=== PATIENT | male | born 1960 | race Caucasian/White ===

== ENCOUNTER → 2023-11-28 18:22 | Outpatient (REF) | payer OTHER, SELFPAY | LOC: MRI 3T 18:22 | PROVIDERS: ATTENDING PHYSICIAN Specialist; FAMILY PHYSICIAN Nurse Practitioner | DX: C61 Malignant neoplasm of prostate (principal) | CPT/HCPCS: 72197; A9575 ==

== ENCOUNTER → 2023-12-31 06:31 | Day surgery (SDC) | payer OTHER, SELFPAY | LOC: GI 06:31 | PROVIDERS: ATTENDING PHYSICIAN Specialist | DX: Z12.11 Encounter for screening for malignant neoplasm of colon (principal); K57.30 Diverticulosis of large intestine without perforation or abscess without bleeding; K63.3 Ulcer of intestine | CPT/HCPCS: 45380; 88305; 88312; 88341; 88342 ==

== ENCOUNTER 2024-11-18 01:51 | Inpatient (IN) | payer OTHER, SELFPAY ==
[2024-11-17 20:44] VITALS: BP 146/73
[2024-11-17] MEDS: TYLENOL 650 MG PO (20:52)
[2024-11-17 21:14] LABS: % Basophils 0.3 % (0-2); % Lymphocytes 4.3 % (20.5-51.1); % Monocytes 6.6 % (1.7-9.3); % Neutrophils 87.8 % (42.2-75.2); Absolute Immature Granulocytes 0.1 10^3/uL (0-0.05); Absolute Lymphocytes 0.5 10^3/uL (1.2-3.4); Absolute Monocytes 0.8 10^3/uL (0.1-0.6); Absolute Neutrophils 10.1 10^3/uL (1.4-6.5); Hemoglobin 11.4 g/dL (13.0-18.0); Mean Corp Hgb Conc. 35.6 g/dL (33.0-37.0); Mean Corpuscular Hgb 32.9 pg (27.0-31.0); Mean Corpuscular Volume 92.5 fL (80.0-94.0); Mean Platelet Volume 8.4 fL (7.4-10.4); Nucleated Red Blood Cells % 0 % (-); Platelet Count 259 10^3/uL (130-400); Red Blood Cell Count 3.46 10^6/uL (4.70-6.10); Red Cell Dist. Width 12.1 % (11.5-14.5); White Blood Cell Count 11.5 10^3/uL (4.8-10.8)
[2024-11-17 21:27] LABS: COVID-19 Antigen Negative (Negative)
[2024-11-17 21:28] LABS: ALT (SGPT) 24 U/L (0-50); AST (SGOT) 28 U/L (17-59); Albumin 3.8 g/dl (3.5-5.0); Alkaline Phosphatase 59 U/L (38-126); Blood Urea Nitrogen 14 mg/dl (9-20); Calcium 8.6 mg/dl (8.4-10.2); Carbon Dioxide 23 mmol/L (22-30); Chloride 92 mmol/L (98-107); Glucose 132 mg/dl (70-99); Potassium 4.5 mmol/L (3.5-5.1); Sodium 125 mmol/L (135-145); Total Bilirubin 0.7 mg/dl (0.2-1.3); Total Protein 6.4 g/dl (6.3-8.2); eGFR > 60.00
[2024-11-17 22:15] VITALS: BP 123/75
[2024-11-17 23:01] VITALS: BMI 27.0
--- NOTE | 2024-11-17 23:05 | ED.GENMED ---
History of Present Illness
General
Chief Complaint: Fever
Source: patient and spouse
Exam Limitations: none
Time Seen by Provider: 11/17/24 22:48
Nursing documentation reviewed up to this point in time: agreed with
History of Present Illness
History of Present Illness:
Very pleasant 64-year-old male with his spouse presents with fever body aches chills cough for about a week, suffers from RA is on a biologic med has prostate cancer said decreased p.o. intake he has been confused at times
Past History
Past History
ED Past Medical History: Hypothyroidism and Other (RA); Negative Arrthythmia
ED Past Surgical History: Orthopedic
Social History
Tobacco: Non-smoker
Alcohol: Occasional
Drug: None
Personal:
Living: with family
Employment: Employed (Construction)
Review of Systems
Review of Systems
All Other Systems: Not applicable
Constitutional: Reports fever, fatigue and chills
Respiratory: Reports cough
Cardiac: Reports no symptoms
ABD/GI: Denies abdominal pain
Neurological: Reports dizzy and weakness
Endocrine: Reports no symptoms
Phy Exam
Physical Exam
Physical Exam:
Physical Exam
General: Ill-appearing male
Neck: dry lips
Heart: irregular
Lungs: crackles left base
Abdomen:non tender
Neuro: alert and oriented. no focal neurological deficits
Skin: no rash
Psychiatric: well kept. interactive and cooperative
Extremities: no edema.
Course
Orders/Labs/Results
Orders:
Orders
11/17/24 20:48
CR Chest - 2 Views Urgent
Comment:
Reason For Exam: cough
11/17/24 20:49
Acetaminophen [Tylenol] 650 mg PO NOW STA
11/17/24 20:55
COVID-19 Antigen Urgent
Source: Nasal Swab
Complete Blood Count/With Diff Urgent
Comprehensive Metabolic Panel Urgent
Influenza A+B Rapid Molecular Urgent
KAYLA Source: Nasal Swab
Specimen Description:
11/17/24 21:40
ECG [Electrocardiogram (*1)] Urgent
Reason for Study: Other
Other Reason for Exam: low sodium
EKG- Treatment ONCE
11/17/24 22:49
CefTRIAXone [Rocephin] 1,000 mg IV NOW STA
11/17/24 22:50
0.9% Sodium Chloride 1000 ml [Nss] 2,000 ml IV BOLUS
11/17/24 23:00
Blood Culture Q30M
KAYLA Source: Blood/Venous
Specimen Description:
11/17/24 23:02
Cefepime HCl [Maxipime] 2,000 mg IV NOW STA
11/17/24 23:04
0.9% Sodium Chloride 1000 ml [Nss] 1,000 ml IV BOLUS
11/17/24 23:30
Blood Culture Q30M
KAYLA Source: Blood/Venous
Specimen Description:
Abnormal Lab Results
11/17/24
20:55
WBC 11.5 H 10^3/uL
(4.8-10.8)
RBC 3.46 L 10^6/uL
(4.70-6.10)
Hgb 11.4 L g/dL
(13.0-18.0)
Hct 32.0 L %
(39.0-52.0)
MCH 32.9 H pg
(27.0-31.0)
Abs Immat Gran (auto) 0.1 H 10^3/uL
(0-0.05)
Absolute Neuts (auto) 10.1 H 10^3/uL
(1.4-6.5)
Absolute Lymphs (auto) 0.5 L 10^3/uL
(1.2-3.4)
Absolute Monos (auto) 0.8 H 10^3/uL
(0.1-0.6)
Immature Gran % 1.0 H %
(0-0.5)
Neutrophils % 87.8 H %
(42.2-75.2)
Lymphocytes % 4.3 L %
(20.5-51.1)
Sodium 125 L mmol/L
(135-145)
Chloride 92 L mmol/L
(98-107)
Glucose 132 H mg/dl
(70-99)
11/17/24 20:55
11/17/24 20:55
Vital Signs
Initial and Last Documented VS:
Initial Vital Signs
Temp Pulse Resp BP Pulse Ox
103.2 F H 81 20 146/73 94
11/17/24 20:44 11/17/24 20:44 11/17/24 20:44 11/17/24 20:44 11/17/24 20:44
Last Documented Vital Signs
Temp Pulse Resp BP Pulse Ox
99.0 F 87 14 123/75 96
11/17/24 22:50 11/17/24 22:45 11/17/24 22:45 11/17/24 22:15 11/17/24 22:45
MDM/Problems Addressed
Differential Diagnosis Includes:
Community-acquired pneumonia bacteremia immunosuppressed pneumonia
MDM/Problems Addressed:
Fever low sodium immunosuppressed
Chronic conditions affecting care: Immunosuppressed
Acute Exacerbation and/or Progression of Chronic Illness: Immunosuppressed
*Radiology
Radiology exam reviewed: radiology read reviewed
*Pulse Oximetry
Patient hypoxic: no
*EKG
Interpreted by ED Provider?: Yes
Interpretation: abnormal
Comparison EKG: no comparison EKG present
Heart Rate: 77
Rate: normal
Rhythm: a-fib
Ischemia: non-specific ST changes
*Reference Assistant Interpretation
Rate: normal
Interpretation: normal
Heart Rate: 78
Rhythm: a-fib
*Critical Care Note
Total Time (30-74mins, 75-104mins- exclusive of procedures): 20
Data Reviewed
Review of Other/Old Records Reveals: Labs, Records and Radiology Studies
Source: patient
Patient Management
Social determinants of health affecting care: Living situation and Strong social support
Discussion with other providers: Hospitalist
Escalation/DeEscalation of care consider admission/obs:
Immunosuppressed fever large pneumonia new A-fib
ED Attending Note
-
Portions of this chart may have been created with voice recognition software.� Occasional wrong word or��sound alike� substitutions may have occurred due to the inherent limitations of voice recognition software.
Discharge Plan
Departure
Patient Disposition: Admit
Date of Disposition: 11/17/24
Time of Disposition: 23:10
Admit to: Telemetry
Presentation/result/management discussed w/ accepting MD/DO: Hospitalist
Condition: Fair
Discharge Problem:
Immunosuppressed pneumonia, Atrial fibrillation with normal ventricular rate
Prescriptions:
No Action
levothyroxine 25 MCG tablet
25 mcg PO DAILY
escitalopram oxalate 10 MG tablet
10 mg PO DAILY
hydrocodone-acetaminophen [Durant] 1 EACH tablet
1 ea PO Q4HPRN PRN (Reason: severe pain) Qty: 10 0RF
cephalexin 500 MG capsule
500 mg PO BID Qty: 20 0RF
Referrals:
UNKNOWN - PT DOES,NOT KNOW [Unknown Provider] -
Interventions
Interventions:
*Risk Screen - Suicide Last Done: 11/17/24 23:01
*General Assessment Last Done: 11/17/24 23:01
*Neglect/Abuse Screening Last Done: 11/17/24 23:01
*ED COVID-19 Vaccine History Last Done: 11/17/24 23:01
Discharge Date and Time
Print Language: GABONESE
[2024-11-17 23:20] VITALS: BP 124/74
[2024-11-17] MEDS: MAXIPIME 2000 MG IV (23:24)
[2024-11-17] MEDS: NSS 1000 IV (23:39)
[2024-11-18] VITALS (12 sets, daily range): BP systolic 109–156; BP diastolic 66–89; BMI 26.3
--- NOTE | 2024-11-18 01:31 | HPS.HSE ---
Family Physician
-
Family Physician: YANNA Rain
Chief Complaint
-
Fever / Confusion
History of Present Illness
Patient is a 64y M with PMH significant for RA, hypertension and hypothyroidism who presents to ED complaining of fever and confusion. Patient states that he has been having subjective fevers, occasional chills for about one week. He has felt
'fuzzy headed' at times and has been increasingly confused over the past week. He denies any other significant symptoms including sore throat, cough, headache, dyspnea, etc.
No GI or symptoms.
Medical History
Past Medical History
Past Medical History: Reports Other
Additional Past Medical History:
Rheumatoid Arthritis
Prostate Cancer
Hypertension
Hypothyroidism
Past Surgical History: Reports Other
Additional Past Surgical History:
Right Hand Surgery
Bilateral Knee Arthroscopies
Prostate Biopsy
Social History
Tobacco: Former Smoker (Quit smoking > 10 years ago.)
Alcohol: Occasional
Drug: None
Family History
Family History: Not pertinent
Allergies / Home Medications
Allergies reflects when Allergies were last updated in [facility].
Home Medications with original date entered in [facility]
Allergy/Medication List:
Allergies
Allergy/AdvReac Type Severity Reaction Status Date / Time
No Known Allergies Allergy Verified 11/17/24 20:44
Home Medications
golimumab 12.5 mg/mL intravenous solution (Simponi ARIA) 200 mg IV Q8W 11/18/24
levothyroxine 50 mcg tablet 50 mcg PO DAILY 11/18/24
lisinopril 40 mg tablet 40 mg PO DAILY 11/18/24
Review of Systems
-
History Source: Patient
A 12 point ROS was completed and negative except as noted: Yes
Constitutional: Reports Fever, Fatigue and Chills
EENT: Denies Sore Throat
Respiratory: Denies Cough or Trouble Breathing
Cardiac: Denies Chest Pain or Palpitations
Abdomen/GI: Denies Abdominal Pain, Nausea, Vomiting or Diarrhea
: Denies Dysuria, Frequency or Flank Pain
Musculoskeletal: Denies Joint Pain or Edema
Neurological: Denies Dizzy or Headache
Psych: Reports Other (Confusion.); Denies Depression or Anxiety
Physical Exam
Vital Signs
Vital Signs
Temp Pulse Resp BP Pulse Ox
99.0 F 89 20 133/75 96
11/17/24 22:50 11/18/24 01:00 11/18/24 01:00 11/18/24 01:00 11/18/24 01:00
Physical Exam
General: Other (64y M in no acute distress.)
HEENT: Moist mucous membranes and PERRLA
Respiratory: Other (Decreased BS at the L base. Otherwise clear.)
Cardiac: S1/S2 and Irregular Rhythm; No Murmur
GI: Soft, Non Tender, Non Distended and Normal Bowel Sounds
Musculoskeletal: No Clubbing, No Cyanosis and No Edema
Neuro: AO x 3
Laboratory Results
-
11/17/24 20:55
11/17/24 20:55
Laboratory Results
Total Bilirubin 0.7 mg/dl (0.2-1.3) 11/17/24 20:55
AST 28 U/L (17-59) 11/17/24 20:55
ALT 24 U/L (0-50) 11/17/24 20:55
Alkaline Phosphatase 59 U/L (38-126) 11/17/24 20:55
Impression/Plan
-
A/P: Patient is a 64y M with PMH significant for RA, HTN and hypothyroidism who presents to ED complaining of fevers and confusion x 1 week.
LLL Pneumonia
Sepsis secondary to the above
Acute TME secondary to the above
- Admit for further evaluation and treatment.
- COVID / flu negative in the ED.
- Continue abx for CAP.
- Supportive care with antipyretics, IVFs, etc.
- Follow for clinical improvement.
Hyponatremia
- Likely secondary to sepsis +/- ADH due to pneumonia / pulm process.
- Check urine studies, TFTs, etc.
- Follow for improvement with treatment of pneumonia and IVFs overnight.
Arrhythmia
- Patient with marked arrhythmia on tele / EKG.
- Appears to be A-Fib / Flutter with variable block.
- Has prior history of 'palpitations' and 'PACs' but current tracings appear more significant.
- Monitor on tele overnight. Check TFTs as noted above.
- Cardiology evaluation for additional recommendations.
Benign Hypertension
- Stable. Continue lisinopril.
Rheumatoid Arthritis
- Stable. No current complaints of joint pain, etc.
- Last dose of Simponi was about 5 weeks ago.
Prostate Cancer
- s/p initial treatment regimen.
- Follow up with Urology / Oncology as planned.
DVT Prophylaxis: Lovenox
Code Status: Full
[2024-11-18] MEDS: NSS 1000 IV ×3 (02:07→21:58)
[2024-11-18 03:04] LABS: Osmolality Urine 265 mOsm/kg (300-900)
[2024-11-18 03:12] LABS: Urine Sodium 10 mmol/L (30-90)
[2024-11-18 05:53] LABS: Hematocrit 29.5 % (39.0-52.0); Hemoglobin 10.8 g/dL (13.0-18.0); Mean Corp Hgb Conc. 36.6 g/dL (33.0-37.0); Mean Corpuscular Hgb 33.4 pg (27.0-31.0); Mean Corpuscular Volume 91.3 fL (80.0-94.0); Platelet Count 219 10^3/uL (130-400); Red Blood Cell Count 3.23 10^6/uL (4.70-6.10); Red Cell Dist. Width 12.1 % (11.5-14.5); White Blood Cell Count 9.2 10^3/uL (4.8-10.8)
[2024-11-18] MEDS: SYNTHROID 50 MCG PO (05:57)
[2024-11-18] MEDS: TYLENOL 650 MG PO ×2 (05:58→16:57)
[2024-11-18 06:18] LABS: Blood Urea Nitrogen 14 mg/dl (9-20); Calcium 8.1 mg/dl (8.4-10.2); Carbon Dioxide 22 mmol/L (22-30); Chloride 101 mmol/L (98-107); Estimated Creatinine Clearance 119 ml/min; Glucose 112 mg/dl (70-99); Sodium 130 mmol/L (135-145); eGFR > 60.00
[2024-11-18 06:48] LABS: TSH Reflex To Free T4 0.91 uIU/ml (0.47-4.68)
[2024-11-18] MEDS: VIBRAMYCIN 100 MG PO ×2 (07:47→19:54)
[2024-11-18] MEDS: ZESTRIL 40 MG PO (07:48)
[2024-11-18] MEDS: STERILE WATER FOR INJECTION 10 ML IV (07:49)
[2024-11-18] MEDS: ROCEPHIN 1000 MG IV (07:49)
--- NOTE | 2024-11-18 08:01 | CON.CAR ---
Addendum entered and electronically signed by Ross Geller MD 11/18/24 11:10:
I saw and examined the patient.
The AUTOMATIC MACHINE ATTENDANT's note was reviewed and I agree with the note.
Comment:
Elvis Ghotra is a 64-year-old man with history of prostate cancer on Lupron, hypertension on lisinopril, and rheumatoid arthritis who presents with fever and chills found to have left lower lobe pneumonia. Cardiology is consulted for atrial flutter
with variable response on admission. He spontaneously converted and is now in sinus rhythm. He was asymptomatic during his episode of atrial flutter. Physical exam with RRR, no murmurs, no lower extremity edema, crackles at the left lung base.
Labs notable for WBC 11.5, creatinine 0.7. Initial ECG shows atrial flutter with variable conduction, HR 111 bpm. For his atrial flutter, he is now back in sinus rhythm. [id number] 1 for hypertension. We will not start anticoagulation at this
time given low [id number] score and atrial flutter likely precipitated by acute illness. We will check an echocardiogram to rule out structural heart disease. Assuming his echocardiogram is normal, he can follow-up with us in the office in 4-6
weeks at which time we will do an ambulatory monitor to check for any ongoing atrial arrhythmias. His lisinopril is currently held for sepsis. When BP meds are resumed, would recommend switching lisinopril to carvedilol for rate control.
Original Note:
Consultation
Consultation Request
Date/Time Consultation Requested: 11/18/2024 01:50
Date/Time Consultation Performed: 11/18/2024 08:00
Requesting Provider: Dr. Reilly
Performing Provider: YANNA Myers for Dr. Geller
Reason for Consultation: Arrhythmia
Medical History
-
Chief Complaint: Fever
History of Present Illness:
Elvis Ghotra is a 64 year old male with hypothyroidism, HTN, RA (on golimumab)and prostate cancer (on Lupron), presented with a chief complaint of fever. He had associated chills, cough, and body aches for one week. He was found to have LLL PNA. He
was also found to be in atrial flutter. He did not have any palpitations. His is back in sinus rhythm.
Past Medical History
Past Medical History: Cancer (Prostate) and Hypothyroidism
Past Surgical History: Orthopedic
Social History
Tobacco: Non-Smoker
Alcohol: Occasional (6 pack per week)
Drug: None
Personal:
Living: With Family
Employment: Retired
Family History
Family History: Other (CVA in both parents in their 80s.)
Allergies / Home Medications
Allergy/AdvReac Type Severity Reaction Status Date / Time
No Known Allergies Allergy Verified 11/17/24 20:44
�Medication �Instructions �Recorded �Confirmed �Type
golimumab 12.5 mg/mL intravenous 200 mg IV Q8W 11/18/24 11/18/24 History
solution (Simponi ARIA)
levothyroxine 50 mcg tablet 50 mcg PO DAILY 11/18/24 11/18/24 History
lisinopril 40 mg tablet 40 mg PO DAILY 11/18/24 11/18/24 History
Review of Systems
-
History Source: Patient
All other systems: Negative unless noted
Constitutional: Fever and Fatigue
EENT: No Symptoms
Respiratory: Cough
Cardiac: No Symptoms
Abdomen/GI: No Symptoms
: No Symptoms
Musculoskeletal: Muscle Pain
Skin: No Symptoms
Neurological: No Symptoms
Endocrine: No Symptoms
Hematologic/Lymphatic: No Symptoms
Physical Exam
Vital Signs
Temp Pulse Resp BP Pulse Ox
99.9 F 68 12 129/66 94
11/18/24 02:33 11/18/24 07:48 11/18/24 07:00 11/18/24 07:48 11/18/24 07:00
Lab Results
11/18/24 05:48
11/18/24 05:48
Physical Exam
General: Well Developed, Well Nourished, No Apparent Distress and Comfortable
HEENT: Normocephalic, Anicteric and Moist Mucous Membranes
Respiratory: Rhonchi (post LLL) and Non Labored Respirations
Cardiac: S1/S2 and Regular Rhythm; Negative Peripheral Edema
Breast: Deferred by me
GI: Soft, Non Tender, Non Distended and Normal Bowel Sounds
Rectal: Deferred by Provider
Genito-urinary: No Costovertebral Tender
Musculoskeletal: No Clubbing, No Cyanosis and No Edema
Skin: Warm and Dry
Neuro: AO x 3
Hematologic/Lymphatic: No Lymphadenopathy
Psych: Calm
Impression / Plan
-
I/P: 64M with hypothyroidism, HTN, RA (on golimumab), and prostate cancer (on Lupron) presented with fever. He has PNA. He was found to be in atrial flutter.
Atrial flutter, type unknown
- Back in sinus rhythm
- Oral Anticoagulation: None prior to arrival
- [id number]: score 1 (HTN)
- Echocardiogram
Hypertension
- Hold Lisinopril with the start of metoprolol
PNA, LLL
- Neg for Covid-19 & influenza
- Per primary, still febrile
Hyponatremia, per primary
Fasting hyperglycemia, Hgba1c pending
Hypothyroidism, TSH stable on current dose of levothyroxine
RA, on golimumab
Prostate cancer, on Lupron
Data Reviewed
-
EKG: Report Reviewed by me (Atrial flutter, LAFB, rate 111)
Radiology: Report Reviewed by me (CXR: Large 11.7 cm dense airspace consolidation in the superior segment of the left lower lobe most consistent with SEVERE LEFT LOWER LOBE PNEUMONIA in the setting of fever and cough. )
Labs: Labs Reviewed by me
Old Records: Reviewed
--- NOTE | 2024-11-18 09:55 | W.PN.HOSP.TC ---
Today's Communication/Plan
-
See plan
Assessment / Plan
Assessment / Plan
Impression
Patient is a 64y M with PMH significant for RA, HTN and hypothyroidism who presents to ED complaining of fevers and confusion x 1 week.
Left lower lobe pneumonia community-acquired
Chronic immunosuppressed state on Biologics for rheumatoid arthritis.
Symptomatic hyponatremia
Toxic metabolic encephalopathy secondary to infection and hyponatremia
Arrhythmia likely atrial flutter
Other conditions:
Benign hypertension.
Rheumatoid arthritis on biologic.
Prostate carcinoma.
Plan:
Community-acquired pneumonia with left lower lobe infiltrate
No evidence of sepsis
COVID/flu negative on admission
Continue ceftriaxone/doxycycline.
Incentive spirometry.
Will need follow-up imaging as outpatient for improvement.
Hyponatremia.
Symptomatic given fogginess upon presentation.
Urine sodium consistent with prerenal stimuli and impaired urine dilution may be consistent with high ADH state
Improving with normal saline challenge. Will continue. Follow BMP
Arrhythmia.
ECG consistent with A-fib/flutter with variable block.
Patient complains of prior history of palpitations.
TSH within normal limits.
Continue cardiac monitoring
Echocardiogram
Cardiology evaluation
Rheumatoid arthritis.
On Simponi with current injection 5 weeks ago.
Currently asymptomatic
Prostate carcinoma.
Status post initial treatment regimen in 2023.
Follow-up PET scan with no distant disease
DVT prophylaxis/Lovenox
Full code
Anticipated Discharge: 24 - 48 hours
Subjective/Interval History
-
Date of Service: November 18, 2024
Objective Data
-
Labs:
Laboratory Results
11/18/24
05:48
WBC 9.2
Hgb 10.8 L
Hct 29.5 L
Plt Count 219
Sodium 130 L
Potassium 4.0
Chloride 101
Carbon Dioxide 22
BUN 14
Creatinine 0.7
Glucose 112 H
Calcium 8.1 L
Vital Signs:
Vital Signs
Temp Pulse Resp BP Pulse Ox
100.0 F 68 12 129/66 94
11/18/24 08:09 11/18/24 07:48 11/18/24 07:00 11/18/24 07:48 11/18/24 07:00
I&O
11/17/24 11/18/24 11/19/24
06:59 06:59 06:59
Output Total 1300 / 1300
Balance -1300 / -1300
Physical Exam
-
General: Well Developed and No Apparent Distress
HEENT: Normocephalic, Atraumatic and Moist Mucous Membranes
Respiratory: Other (Rhonchi with bronchial sounds in the left base to midlung); Negative Wheezes
Cardiac: Regular Rhythm and S1/S2; Negative Murmur, Rub or Gallop
GI: Soft, Nontender, Nondistended and Normal Bowel Sounds; Negative Organomegaly
Rectal: Deferred by Provider
Musculoskeletal: No Clubbing, No Cyanosis and No Edema
Skin: Negative Rash
Neuro: Nonfocal/Grossly Intact
[2024-11-18 10:54] LABS: Glycohemoglobin (HgbA1c) 5.6 % (4.0-5.6)
[2024-11-18] MEDS: NSS IV (11:25)
[2024-11-18] MEDS: LOVENOX 40 MG SC (17:05)
[2024-11-18] MEDS: COREG 6.25 MG PO (19:54)
[2024-11-19 03:50] VITALS: BP 134/73
[2024-11-19 06:00] VITALS: BMI 26.5
[2024-11-19] MEDS: SYNTHROID 50 MCG PO (06:29)
[2024-11-19] MEDS: NSS 1000 IV (06:31)
[2024-11-19 07:35] VITALS: BP 129/75
[2024-11-19] MEDS: COREG 6.25 MG PO (08:21)
[2024-11-19] MEDS: STERILE WATER FOR INJECTION 10 ML IV (08:22)
[2024-11-19] MEDS: ROCEPHIN 1000 MG IV (08:22)
[2024-11-19] MEDS: VIBRAMYCIN 100 MG PO (08:22)
[2024-11-19 08:34] LABS: Blood Urea Nitrogen 13 mg/dl (9-20); Calcium 8.1 mg/dl (8.4-10.2); Carbon Dioxide 23 mmol/L (22-30); Chloride 102 mmol/L (98-107); Estimated Creatinine Clearance 119 ml/min; Glucose 98 mg/dl (70-99); Potassium 3.7 mmol/L (3.5-5.1); Sodium 132 mmol/L (135-145); eGFR > 60.00
--- NOTE | 2024-11-19 10:05 | CM ---
Patient seen bedside.
IA completed.
Patient lives with spouse in a 2 story home with 3 steps to enter.
patient Independent prior to admission without assistive devices.
Patient drives.
patient has not had VN in the past.
patient denies food or housing insecurities.
patient aware of cm availability should needs arise,
Denies home care needs at this time.
PCP: Dr Nguyen
Pharmacy: [facility]
Plan: home no needs anticipated, spouse will transport.
[2024-11-19 11:20] VITALS: BP 116/68
--- NOTE | 2024-11-19 11:41 | W.DS.TRANS ---
DC Summary - Lubrication Technician
-
Discharge Instructions:
Discharge Diagnosis/Procedures Left lower lobe pneumonia.
Acute hyponatremia secondary to dehydration.
Toxic metabolic encephalopathy secondary to
infection and hyponatremia.
Paroxysmal atrial flutter, lone episode in the
settings of electrolyte abnormalities and acute
infection.
Diet Regular
Blood Work BMP in one week
Others Tests Chest x-ray to follow-up with left lower lobe
infiltrate in 4 to 6 weeks
Instructions:
Stand-Alone Forms:
Changes to Home Medications: Yes
Discharge Medications:
DC Medications w/original date entered in [facility]
acetaminophen 325 mg tablet (Tylenol) 650 mg PO Q6HPRN PRN mild pain 11/18/24
aspirin 81 mg tablet,delayed release 81 mg PO DAILY 11/18/24
cholecalciferol (vitamin D3) 25 mcg (1,000 unit) tablet (Vitamin D3) 25 mcg PO DAILY 11/18/24
golimumab 12.5 mg/mL intravenous solution (Simponi ARIA) 200 mg IV Q8W 11/18/24
levothyroxine 50 mcg tablet 50 mcg PO DAILY 11/18/24
therapeutic multivitamin 1 tab PO DAILY 11/18/24
carvedilol 6.25 mg tablet 6.25 mg PO BID #60 tabs 11/19/24
cefuroxime axetil 500 mg tablet 500 mg PO BID #20 tabs 11/19/24
doxycycline hyclate 100 mg capsule 100 mg PO Q12 #20 caps 11/19/24
Home Medication Changes
Additional 10 days of antibiotics per
Stop lisinopril
Initiated on
Pending Results: No
[2024-11-19 15:18] VITALS: BP 113/68
== END 2024-11-19 16:33 | disposition home or self-care (01) | DRG 193 ==
LOC: 1 ACUTE 01:51
PROVIDERS: Emergency Medicine; ADMITTING PHYSICIAN Hospitalist; ATTENDING PHYSICIAN Internal Medicine; EMERGENCY PHYSICIAN Emergency Medicine; OTHER PHYSICIAN Student in an Organized Health Care Education/Training Program
DX: J18.9 Pneumonia, unspecified organism (principal); G92.8 Other toxic encephalopathy; D84.9 Immunodeficiency, unspecified; E87.1 Hypo-osmolality and hyponatremia; I48.92 Unspecified atrial flutter; Z11.52 Encounter for screening for COVID-19; Z87.891 Personal history of nicotine dependence; M06.9 Rheumatoid arthritis, unspecified; Z79.818 Long term (current) use of other agents affecting estrogen receptors and estrogen levels; C61 Malignant neoplasm of prostate; I10 Essential (primary) hypertension; Z79.899 Other long term (current) drug therapy
CPT/HCPCS: 71046; 80048; 80053; 83036; 83935; 84300; 84443; 85025; 85027; 87040; 87502; 87811; 93005; 93306; 96361; 96374; 99285

== ENCOUNTER → 2024-12-26 07:21 | Outpatient (REF) | payer OTHER, SELFPAY | LOC: HWRAD 07:21 | DX: J18.9 Pneumonia, unspecified organism (principal) | CPT/HCPCS: 71046 ==